=== PATIENT | female | born 1980 | race Caucasian/White ===

== ENCOUNTER 2022-01-11 22:13 | Emergency (ER) | payer OTHER ==
--- NOTE | 2022-01-11 23:25 | NUR ---
CALLED TO TRIAGE, NO ANSWER
--- NOTE | 2022-01-11 23:40 | NUR ---
CALLED TO TRIAGE, NO AMSWER
--- NOTE | 2022-01-12 | NUR ---
CALLED TO TRIAGE, NO ANSWER, LWBS
== END 2022-01-11 23:25 | disposition left against medical advice (07) ==
LOC: MED 22:13
DX: R05.9 Cough, unspecified (principal); Z53.21 Procedure and treatment not carried out due to patient leaving prior to being seen by health care provider

== ENCOUNTER 2022-01-12 22:25 | Emergency (ER) | payer OTHER ==
[~2022-01-12] VITALS: Ht 167.6 cm; Wt 115.0 kg
[2022-01-12 23:33] VITALS: BP 113/59
--- NOTE | 2022-01-12 23:38 | NUR ---
SWABS COLLECTED, PT TO LOBBY.
--- NOTE | 2022-01-13 01:35 | NUR ---
PT TO 1
[2022-01-13] MEDS ORDERED: KETOROLAC 30 MG/ML VIAL IM ONE (01:55)
[2022-01-13] MEDS ORDERED: guaiFENesin DM 200/20 MG-10 ML 10 ML UDC PO ONE (01:55)
[2022-01-13] MEDS ORDERED: DICYCLOMINE HCL LIQUID 20 MG, ALUMINUM HYD/MAG/SIMETHICONE 30 ML, LIDOCAINE VISCOUS 2% ... PO ONE ×3 (01:55)
--- NOTE | 2022-01-13 02:02 | NUR ---
XRAY AT BEDSIDE
[2022-01-13] MEDS ORDERED: ALUMINUM HYD/MAG/SIMETHICONE 30 ML UDC ONE (02:04)
[2022-01-13] MEDS ORDERED: DICYCLOMINE HCL LIQUID 10 MG/5 ML UDC ONE (02:05)
[2022-01-13] MEDS ORDERED: ALBU0.0912 IH (03:13)
[2022-01-13] MEDS ORDERED: PROM118S5 PO (03:13)
[2022-01-13] MEDS ORDERED: PSEU120T23 PO (03:13)
[2022-01-13] MEDS ORDERED: PRED20TA5 PO (03:13)
[2022-01-13 03:20] VITALS: BP 116/62
--- NOTE | 2022-01-13 03:20 | NUR ---
Patient discharged with v/s stable. Written and verbal after care instructions given and explained. Patient alert, oriented and verbalized understanding of instructions. Ambulatory with steady gait. All questions addressed prior to discharge. ID band removed. Patient advised to follow up with PMD. Rx of PROVENTIL, DELTASONE, PROMETHAZINE-DM, SUDAFED given. Patient educated on indication of medication including possible reaction and side effects. Opportunity to ask questions provided and answered.
== END 2022-01-13 03:20 | disposition home or self-care (01) ==
LOC: MED 22:25
DX: J10.1 Influenza due to other identified influenza virus with other respiratory manifestations (principal); Z20.822 Contact with and (suspected) exposure to COVID-19
CPT/HCPCS: 71045; 87426; 87804; 96372; 99284; J1885; Q0092

== ENCOUNTER 2022-12-08 08:26 | Emergency (ER) | payer OTHER ==
[~2022-12-08] VITALS: Ht 162.6 cm; Wt 114.8 kg
[~2022-12-08 08:26] MED LIST: ALBU0.0912 IH; PRED20TA5 PO; PROM118S5 PO; PSEU120T23 PO
[2022-12-08 08:37] VITALS: BP 131/84; PULSE 84; RESP 0; TEMP 98.5; O2SAT 99
[2022-12-08 09:20] LABS: APPEARANCE,URINE CLEAR (CLEAR); BILIRUBIN,URINE NEGATIVE (NEGATIVE); BLOOD, URINE NEGATIVE (NEGATIVE); COLOR,URINE YELLOW (YELLOW); LEUKOCYTE ESTERASE ,URINE NEGATIVE (NEGATIVE); NITRITE, URINE NEGATIVE (NEGATIVE); PH,URINE 5.5 (5.0-9.0); PROTEIN,URINE NEGATIVE (NEGATIVE); UGLUCOSE NEGATIVE (NEGATIVE); UROBILINOGEN,URINE 0.2 EU/dL (0.2 - 1)
[2022-12-08 09:22] LABS: BASOPHILS % (AUTO) 0.9 % (0.0-2.0); EOSINOPHILS # (AUTO) 0.2 K/uL (0-0.4); EOSINOPHILS % (AUTO) 3.8 % (0.0-4.0); HEMATOCRIT 44.4 % (36-48); HEMOGLOBIN 14.9 g/dL (12.0-16.0); LYMPHOCYTES # (AUTO) 1.6 K/uL (2.5-16.5); LYMPHOCYTES % (AUTO) 29.3 % (20.5-51.1); MEAN CORPUSCULAR HEMOGLOBIN 30 pg (27-31); MEAN CORPUSCULAR HGB CONC 34 g/dL (33-37); MEAN CORPUSCULAR VOLUME 88.9 fL (80-94); MONOCYTES # (AUTO) 0.4 K/uL (0.8-1.0); MONOCYTES % (AUTO) 7.7 % (1.7-9.3); NEUTROPHILS # (AUTO) 3.3 K/uL (1.8-7.7); NEUTROPHILS % (AUTO) 58.3 % (42.2-75.2); PLATELET COUNT (AUTO) 184 K/uL (140-450); WHITE BLOOD COUNT (AUTO) 5.6 K/uL (4.8-10.8)
[2022-12-08 09:34] LABS: ALBUMIN 3.9 g/dL (3.4-5.0); ANION GAP 10.7 (8-16); CALCIUM 9.3 mg/dL (8.5-10.1); CARBON DIOXIDE 29.7 mmol/L (21-32); POTASSIUM 4.4 mmol/L (3.5-5.1); TOTAL BILIRUBIN 0.5 mg/dL (0.0-1.0); TOTAL PROTEIN, SERUM 8.3 g/dL (6.4-8.2)
[2022-12-08 09:50] VITALS: BP 131/84; PULSE 84; RESP 0; TEMP 98.5; O2SAT 99
== END 2022-12-08 10:52 | disposition home or self-care (01) ==
LOC: MED 08:26
DX: R10.30 Lower abdominal pain, unspecified (principal); Z79.899 Other long term (current) drug therapy
CPT/HCPCS: 36415; 80053; 81003; 81025; 83690; 85025; 99283